=== PATIENT | male | born 1940 | race Caucasian/White ===

== ENCOUNTER 2020-01-28 21:39 | Inpatient (IN) | payer MEDICARE, BC ==
[~2020-01-28] VITALS: Ht 172.7 cm; Wt 60.8 kg
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
--- NOTE | 2020-01-28 21:41 | NUR ---
Dr Louie is at bedside for MSE.
[2020-01-28] MEDS ORDERED: LIDOCAINE 2% (UROJET) 10 ML JELLY MM ONE ×2 (21:45→22:11)
[2020-01-28] MEDS ORDERED: QUET25TA PO (21:58)
[2020-01-28] MEDS ORDERED: FISH OIL OMEGA PO (21:58)
[2020-01-28] MEDS ORDERED: TRAZ-257 PO (21:58)
[2020-01-28] MEDS ORDERED: UBIQUINOL PO (21:58)
[2020-01-28] MEDS ORDERED: MELA5TAB PO (21:58)
[2020-01-28] MEDS ORDERED: MV-M1TAB18 PO (21:58)
[2020-01-28 22:12] LABS: BASOPHILS # (AUTO) 0.1 K/uL (0.0-8.0); EOSINOPHILS # (AUTO) 0.1 K/uL (0.0-0.7); EOSINOPHILS % (AUTO) 2.1 % (0.0-7.0); HEMATOCRIT 38.2 % (36.7-47.1); HEMOGLOBIN 12.9 g/dL (12.5-16.3); LYMPHOCYTES # (AUTO) 1.5 K/uL (20.0-40.0); MEAN CORPUSCULAR HEMOGLOBIN 30.7 uug (23.8-33.4); MEAN CORPUSCULAR HGB CONC 34 g/dL (32.5-36.3); MEAN CORPUSCULAR VOLUME 90.7 fL (73.0-96.2); MONOCYTES # (AUTO) 0.6 K/uL (2.0-10.0); MONOCYTES % (AUTO) 9.6 % (0.0-11.0); NEUTROPHILS # (AUTO) 3.5 K/uL (1.8-8.9); NEUTROPHILS % (AUTO) 60.3 % (38.5-71.5); PLATELET COUNT (AUTO) 224 K/uL (152-348); RED BLOOD CELL COUNT(AUTO) 4.21 MIL/uL (4.06-5.63); WHITE BLOOD COUNT (AUTO) 5.7 K/uL (3.6-10.2)
[2020-01-28 22:16] LABS: CARBON DIOXIDE 31 mmol/L (21-32); CHLORIDE 106 mmol/L (98-107); CREATININE 0.9 mg/dL (0.6-1.3); GLUCOSE 108 mg/dL (74-106); POTASSIUM 3.6 mmol/L (3.5-5.1); UREA NITROGEN, BLOOD 18 mg/dL (7-18)
[2020-01-28 22:22] LABS: ALANINE AMINOTRANSFERASE 18 U/L (16-63); ALKALINE PHOSPHATASE 72 U/L (50-136); ASPARTATE AMINOTRANSFERASE 13 U/L (15-37); BILIRUBIN,DIRECT 0.1 mg/dL (0.0-0.2); BILIRUBIN,TOTAL 0.4 mg/dL (0.2-1.0); TOTAL PROTEIN, SERUM 6.6 g/dL (6.4-8.2)
[2020-01-28 22:24] LABS: ACETAMINOPHEN < 2.0 ug/mL (10-30); ETHANOL < 3 MG/DL (0-0)
[2020-01-28 22:30] LABS: THYROID STIMULATING HORMONE 1.931 mIU/mL (0.358-3.740)
[2020-01-28 22:34] LABS: *BILIRUBIN,URIN NEGATIVE (NEGATIVE); *BLOOD, URINE 1+ (NEGATIVE); *CLARITY,URINE CLEAR (CLEAR); *COLOR,URINE YELLOW (YELLOW); *KETONES,URINE NEGATIVE (NEGATIVE); *UROBILINOGEN,URINE 0.2 E.U./dl (NORMAL); LEUKOCYTE ESTERASE ,URINE NEGATIVE (NEGATIVE); NITRITE, URINE NEGATIVE (NEGATIVE); UGLUCOSE NEGATIVE (NEGATIVE)
[2020-01-28 22:40] LABS: *AMPHETAMINE, URINE NEGATIVE (NEGATIVE); *CANNABINOID, URINE NEGATIVE (NEGATIVE); *COCCAINE, URINE NEGATIVE (NEGATIVE); *OPIATE, URINE NEGATIVE (NEGATIVE); *PHENCYCLIDINE SCREEN,URINE NEGATIVE (NEGATIVE)
--- NOTE | 2020-01-28 22:41 | NUR ---
Pt has been medically cleared by Dr. Louie. Contacted Art HARDWARE TRAINER for Psych Eval.
--- NOTE | 2020-01-28 22:45 | NUR ---
Pt is now fully awake, alert x 1. However, he is confused and trying to get out of bed. Meal provided. Reoriented and redirected, but unable to keep him in bed. RN will continue to monitor for safety.
--- NOTE | 2020-01-28 22:57 | NUR ---
Pt is now in bed, resting comfortably.
[2020-01-28 23:04] LABS: WBC,URINE 0-3 /HPF (0-3)
--- NOTE | 2020-01-28 23:31 | NUR ---
Art TRADER FIXED INCOME at bedside for Psych Eval.
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
[2020-01-29] MEDS ORDERED: MAGNESIUM HYDROXIDE 30 ML LIQUID UDC PO PRN (01:30)
[2020-01-29] MEDS ORDERED: MAG HYDROX/AL HYDROX/SIMETH 30 ML LIQUID UDC PO PRN (01:30)
[2020-01-29] MEDS ORDERED: LORAZEPAM 2 MG/1 ML VIAL IM ONE (01:30)
[2020-01-29] MEDS ORDERED: HALOPERIDOL LACTATE 5 MG/1 ML VIAL IM ONE (01:30)
[2020-01-29] MEDS ORDERED: ACETAMINOPHEN 325 MG TABLET PO PRN (01:30)
[2020-01-29 07:30] VITALS: BP 140/77
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
--- NOTE | 2020-01-29 10:29 | NUR ---
SW Family Contact: This writher contacted pt's both daughters to discuss treatment and discharge plan. Daughter Sanjana ([phone]) is the DPOA for pt. Per pt's daughter Sanjana DPOA ([phone]) and daughter Araceli ([phone]) want pt back to [facility]. Per Araceli, she stated she is more involved in pt's care.
--- NOTE | 2020-01-29 10:29 | NUR ---
SW Initial Discharge Plan: Patient currently resides at [facility] [address] [place] [address]; ([phone]). Per pt's daughter Sanjana LANZA ([phone]) and daughter Araceli ([phone]) want pt back to [facility]. This verse writer contacted [facility] ([phone]) and spoke with Saloni who stated pt is welcomed back upon discharge. This verse writer will work with the MD, family, and treatment team to help coordinate proper discharge.
--- NOTE | 2020-01-29 10:31 | NUR ---
Firearms Report: Environmental Communications Specialist completed and submitted a DP[employer] firearms report for 5150 grave disability certification. A copy of report has been placed in patient chart.
--- NOTE | 2020-01-29 12:22 | NUR ---
called and spoke with patients daughter MYLA Chan , left message , waiting for call back regarding patient flu vaccine history and consent , will continue follow up
[2020-01-29] MEDS: LORAZEPAM 1 MG TABLET PO PRN (12:53)
[2020-01-29 16:00] VITALS: BP 163/92
[2020-01-29 20:00] VITALS: BP 149/86
[2020-01-29] MEDS: RIVASTIGMINE TARTRATE 1.5 MG CAPSULE PO SCH (21:00)
[2020-01-29] MEDS: HALOPERIDOL 1 MG TABLET PO SCH (22:20)
[2020-01-29] MEDS: DIVALPROEX 250 MG TABLET.DR PO SCH (22:20)
[2020-01-30] MEDS: TEMAZEPAM 7.5 MG CAPSULE PO PRN ×2 (02:01→23:28)
[2020-01-30 07:30] VITALS: BP 132/83
[2020-01-30] MEDS: DIVALPROEX 250 MG TABLET.DR PO SCH ×3 (08:21→17:26)
[2020-01-30] MEDS: RIVASTIGMINE TARTRATE 1.5 MG CAPSULE PO SCH ×2 (08:21→21:16)
[2020-01-30] MEDS: HALOPERIDOL 1 MG TABLET PO SCH ×3 (08:21→17:26)
[2020-01-30 08:24] LABS: BILIRUBIN,TOTAL 0.9 mg/dL (0.2-1.0); CREATININE 0.8 mg/dL (0.6-1.3); POTASSIUM 3.4 mmol/L (3.5-5.1); TOTAL PROTEIN, SERUM 7.3 g/dL (6.4-8.2)
[2020-01-30] MEDS: LORAZEPAM 1 MG TABLET PO PRN ×3 (10:42→17:26)
[2020-01-30] MEDS ORDERED: POTASSIUM CHLORIDE 20 MEQ TAB.PRT.SR PO ONE (11:30)
[2020-01-30 16:00] VITALS: BP 151/93
[2020-01-30 20:00] VITALS: BP 165/98
[2020-01-31] MEDS: DIVALPROEX 250 MG TABLET.DR PO SCH ×3 (08:38→18:17)
[2020-01-31] MEDS: RIVASTIGMINE TARTRATE 1.5 MG CAPSULE PO SCH ×2 (08:38→21:10)
[2020-01-31] MEDS: HALOPERIDOL 1 MG TABLET PO SCH ×3 (08:38→18:17)
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
[2020-01-31 10:31] VITALS: BP 124/76
[2020-01-31] MEDS: LORAZEPAM 1 MG TABLET PO PRN (13:23)
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
[2020-01-31 15:08] VITALS: BP 164/85
[2020-01-31 20:04] VITALS: BP 141/89
[2020-02-01] MEDS: TEMAZEPAM 7.5 MG CAPSULE PO PRN (01:54)
--- NOTE | 2020-02-01 07:26 | NUR ---
GPS - Pt not cooperative during routine care and ADL. Pt took routine meds and PRN Restoril. Pt did not sleep much at night. Pt was very combative with staffs, pt continue to stip naked. Will continue to monitor and keep resting.
[2020-02-01 07:30] VITALS: BP 167/87
[2020-02-01] MEDS: DIVALPROEX 250 MG TABLET.DR PO SCH ×3 (09:07→17:58)
[2020-02-01] MEDS: RIVASTIGMINE TARTRATE 1.5 MG CAPSULE PO SCH ×2 (09:07→20:20)
[2020-02-01] MEDS: HALOPERIDOL 1 MG TABLET PO SCH ×3 (09:07→17:58)
[2020-02-01 15:46] VITALS: BP 104/72
--- NOTE | 2020-02-01 18:28 | NUR ---
Gps/Agricultural Chemicals Inspector- Refusing to eat dinner, but able to drink his Ensure supplement Routine meds. was administered crushed with pudding .
[2020-02-01 20:00] VITALS: BP 122/81
[2020-02-02 07:30] VITALS: BP 125/80
[2020-02-02] MEDS: HALOPERIDOL 1 MG TABLET PO SCH ×3 (08:55→17:42)
[2020-02-02] MEDS: RIVASTIGMINE TARTRATE 1.5 MG CAPSULE PO SCH ×2 (08:55→20:58)
[2020-02-02] MEDS: DIVALPROEX 250 MG TABLET.DR PO SCH ×3 (08:55→17:00)
--- NOTE | 2020-02-02 15:40 | NUR ---
Gps/Chief Operator Reformer- Patient noted increased agitation, angry, after he talked to family/ on the phone., Refusing to give up the phone , trying to be aggressive towards the staff, refusing to give up the phone.
[2020-02-02 16:00] VITALS: BP 133/88
[2020-02-02 20:00] VITALS: BP 147/90
[2020-02-02] MEDS: LORAZEPAM 1 MG TABLET PO PRN (21:00)
[2020-02-02] MEDS: TEMAZEPAM 7.5 MG CAPSULE PO PRN (23:49)
--- NOTE | 2020-02-03 06:49 | NUR ---
GPS - No abnormal noted and no excessive issue. Pt has been restless, naked and ripping everything off him. Pt physically with some aggressive when staffs providing ADL. Ativan was given at 2100 and will continue to monitor pt. By 2348 Pt was still awake and restless, PRN Restoril given with noted effect. Pt slept about 5-6hrs but stay calm in bed when awake.
[2020-02-03 07:30] VITALS: BP_SYST 125; BP_SYST 152; BP_DIAS 75; BP_DIAS 80
[2020-02-03] MEDS: DIVALPROEX 250 MG TABLET.DR PO SCH ×3 (08:38→17:00)
[2020-02-03] MEDS: HALOPERIDOL 1 MG TABLET PO SCH ×3 (08:38→17:37)
[2020-02-03] MEDS: RIVASTIGMINE TARTRATE 1.5 MG CAPSULE PO SCH ×2 (08:38→20:25)
--- NOTE | 2020-02-03 09:50 | NUR ---
Family Contact: Pts daughter, Araceli ([phone]), called the SW and stated that she wanted to discuss the pts care. SW spent 25 minutes with the pts daughter to explain what it means for the pt to be on a hold, what the pts behaviors are, what the pts medications are, what the MDs involvement with the family and pt looks like, and lastly what the pts discharge recommendation is. OSWALDO stated that she messaged the MD to speak to the family later tonight and then informed her that based off of the pts behaviors, SW felt that a SNF would be more appropriate and then provided her with some options. SW stated that she will follow up once the pts daughter can speak with the pts DPOA.
[2020-02-03 15:09] VITALS: BP 142/83
[2020-02-03 21:07] VITALS: BP 132/66
--- NOTE | 2020-02-04 06:52 | NUR ---
Received Pt in his room in bed, naked from the waist down, and masturbating. Pt was redirected and educated on appropriate behavior. Pt did not respond to most assessment questions, gave minimal disclosure, and was uncooperative with staff direction. Pt is confused, disorganized, and disoriented, has poor recall, and requires frequent redirection. Pt becomes unpredictable, combative, and assaultive toward staff when care is rendered. Presents with poor impulse control, appears to be thought blocked and internally preoccupied when not being aggressive. Pt is isolative, withdrawn, and seclusive to his room, refused all prns offerred to him. VS stable, no c/o pain. Bed bath given with multiple staff this morning.
[2020-02-04 07:30] VITALS: BP 123/75
[2020-02-04] MEDS: DIVALPROEX 250 MG TABLET.DR PO SCH ×3 (08:03→16:30)
[2020-02-04] MEDS: HALOPERIDOL 1 MG TABLET PO SCH ×3 (08:03→16:30)
[2020-02-04] MEDS: RIVASTIGMINE TARTRATE 1.5 MG CAPSULE PO SCH ×2 (08:03→20:46)
--- NOTE | 2020-02-04 10:56 | NUR ---
SNF Referral: OSWALDO faxed a referral to [facility] with attention to Ravi to the fax number: [phone].
--- NOTE | 2020-02-04 13:30 | NUR ---
Family Contact: SW called the pts daughter, Araceli ([phone]), after the Charge Nurse stated that she wanted a call from the SW to discuss discharge planning. Araceli stated that the Charge Nurse informed her that the pt has been doing better and was walking today. SW informed the pts daughter that the pt did indeed walk with physical therapy today but is not doing better. SW stated that the pt is in his room, taking his clothes off, masturbating, not eating, not taking medications, malodorous, and aggressive. SW read notes from the pts chart to the daughter to verify the pts behaviors. Pts daughter stated that she was upset with the "constant misinformation and lack of care from this facility." Pts daughter stated, "I do not trust this facility and want my father to be discharged somewhere else as soon as possible." She stated that she had just informed her family members that he was doing better and that they were planning on sending him back to the Assisted Living that he came from. OSWALDO stated that based off of the current notes and the behavior described that the recommendation for placement would be SNF. OSWALDO stated that she will refer the pt to fdc facilities and will let her know if there is an accepting one. OSWALDO stated that she will call her with updates and information on the pt as she feels that there is a lack of family involvement.
--- NOTE | 2020-02-04 14:10 | NUR ---
Family Contact: SW called the pts daughter, Araceli ([phone]), after speaking to the pts nurse for the day. SW stated that the pts nurse stated, "the pt is horrible." Pts nurse stated that she has been having a difficult time giving the pt his medications and the pt was refusing to eat so they had to give the pt Ensure. SW informed the pts daughter that the pt is not stable and needs more time and that the SW will refer the pt to SNF. Pts daughter agreed with the placement referrals.
--- NOTE | 2020-02-04 14:46 | NUR ---
SNF Referral: OSWALDO faxed a referral to [facility] with attn to Sherita to the fax number: [phone].
--- NOTE | 2020-02-04 15:13 | NUR ---
SNF Contact: Sherita ([phone]) from [facility] contacted the SW and stated that the pt was accepted to their facility.
[2020-02-04 16:00] VITALS: BP 121/85
[2020-02-04 20:10] VITALS: BP 121/85
[2020-02-05 07:30] VITALS: BP 132/81
[2020-02-05] MEDS: RIVASTIGMINE TARTRATE 1.5 MG CAPSULE PO SCH ×2 (08:36→21:13)
[2020-02-05] MEDS: HALOPERIDOL 1 MG TABLET PO SCH ×3 (08:36→17:00)
[2020-02-05] MEDS: DIVALPROEX 250 MG TABLET.DR PO SCH ×3 (08:36→17:00)
--- NOTE | 2020-02-05 10:05 | NUR ---
Family Contact: Pts daughter, Araceli ([phone]), called the SW and stated that she spoke to Charge Nurse about the misinformation from the previous day and the Charge Nurse stated he does not know about the information that the SW presented the previous day. SW informed her that she spoke to him after he got off the phone and showed him the notes that he was unaware of. Pts daughter stated that she wanted an update on how the pt was doing today and SW stated that she saw him in his room but was unable to speak to him. Pts daughter asked the SW to refer the pt to a facility and then rescinded the request when she realized that the facility is in [place]. SW stated that the pt is in no condition to be flying at this time and that local placement is recommended. SW informed her that the pt was accepted to [facility] and then informed her that she would have the Admissions Department contact her.
--- NOTE | 2020-02-05 10:30 | NUR ---
MYLA Contact: Pt's daughter Sanjana LANZA ([phone]) called the SW and stated that she wanted the SW to send paperwork to a facility in [place] even though she agreed that the pt needs a local placement first. SW expressed that sending the notes before the pt is stable may jeopardize the pts admission to the facility in [place]. Pts daughter stated that she will talk to the facility and contact the SW at a later time if it is still needed.
--- NOTE | 2020-02-05 12:57 | NUR ---
Family Contact: Pts daughter, Araceli ([phone]), called the SW and stated that she spoke to [facility] and does not feel like the pt would get the appropriate care that he needs at that facility. She expressed that if the pt improves that they would want the pt back at his Assisted Living and SW stated that she can have a conversation with the facility to make sure that they will be able to care for the pt. SW also provided the pts daughter with multiple SNF options in case she will find one that is a better fit. SW stated that she will call the daughter the next day to address the discharge plan.
--- NOTE | 2020-02-05 15:56 | NUR ---
Family Contact: OSWALDO called the pts daughter, Araceli ([phone]), and left a voicemail stating that OSWALDO would like to provide her with an update.
[2020-02-05 16:00] VITALS: BP 128/88
[2020-02-05 20:22] VITALS: BP 150/81
[2020-02-06 07:30] VITALS: BP 139/91
--- NOTE | 2020-02-06 08:41 | NUR ---
Family Contact: OSWALDO called the pts daughter, Araceli ([phone]), and informed her that the pts medications were adjusted the previous night and in fact were decreased because the MD note states that the pt was too sedated during the day. SW then went into the notes to review how the pts meal intake is like and saw that the pt had 75% of breakfast, 25% of lunch and 0% of dinner. Pts daughter stated that she wanted a list of SNF recommendations so that the family can do their research and then figure out if they want him in a SNF or if they want the pt in an Assisted Living. Pts daughter stated that this decision will also depend on whether or not the pt improves with this change in medication. SW stated that she will provide her with an update later in the day.
[2020-02-06] MEDS: DIVALPROEX 250 MG TABLET.DR PO SCH ×3 (09:07→16:43)
[2020-02-06] MEDS: RIVASTIGMINE TARTRATE 1.5 MG CAPSULE PO SCH ×2 (09:07→20:34)
[2020-02-06] MEDS: HALOPERIDOL 0.5 MG TABLET PO SCH ×3 (09:07→16:43)
[2020-02-06] MEDS: ENSURE ENLIVE (VAN) 240 ML LIQUID PO SCH (09:08)
--- NOTE | 2020-02-06 15:35 | NUR ---
Family Contact: Pts daughter, Araceli ([phone]), called the SW and informed the SW that she wanted the pt to be referred to [facility], [facility], [facility], [facility], and [facility] in that order after the SW informed him about the pts behaviors.
--- NOTE | 2020-02-06 15:54 | NUR ---
SNF Referral: OSWALDO faxed a referral to [facility] with attention to Silva to the fax number: [phone].
[2020-02-06 16:00] VITALS: BP 126/78
[2020-02-06 20:00] VITALS: BP 138/87
--- NOTE | 2020-02-07 03:30 | NUR ---
While changing patient's diaper, he became combative, kicking and grabbing staff with his hands. patient noted with impaired insight and judgment. Unable to have a meaningful conversation with this senior copywriter. We will continue to monitor.
[2020-02-07 07:30] VITALS: BP 129/74
[2020-02-07] MEDS ORDERED: Medication Not On Formulary EA (Mv-Mn/Iron/FA/Herbal Cmplx#190 (Vitamin D3 Complete Capl PO SCH (09:00)
[2020-02-07] MEDS ORDERED: [UNRECOGNIZED DRUG - OTHER] PO SCH (09:00)
[2020-02-07] MEDS: OMEGA-3 FATTY ACIDS/FISH OIL CAPSULE PO SCH (09:00)
[2020-02-07] MEDS: ENSURE ENLIVE (VAN) 240 ML LIQUID PO SCH (09:00)
[2020-02-07] MEDS: CHOLECALCIFEROL 1,000 UNIT TABLET PO SCH (09:31)
[2020-02-07] MEDS: RIVASTIGMINE TARTRATE 1.5 MG CAPSULE PO SCH ×2 (09:31→20:41)
[2020-02-07] MEDS: DIVALPROEX SPRINKLE 125 MG CAP.SPRINK PO SCH ×3 (09:32→17:24)
[2020-02-07] MEDS: HALOPERIDOL 0.5 MG TABLET PO SCH ×3 (09:32→17:24)
[2020-02-07] MEDS: CALCIUM CARBONATE 500 MG TABLET PO SCH (09:57)
--- NOTE | 2020-02-07 10:51 | NUR ---
SNF Contact: Silva ([phone]) from [facility] contacted the SW and stated that the pt was accepted to their facility at the time of discharge with a negative COVID test.
--- NOTE | 2020-02-07 12:20 | NUR ---
Family Contact: SW called the pts daughter, Araceli ([phone]), and informed her that [facility] has accepted the pt. Pts daughter stated that she wanted referrals sent to [facility] and [facility]. SW stated that she will send the referrals. Pts daughter asked for an update on the pts behaviors and SW stated that the pt is combative with the nurses when they attempt to offer care and that he ate 50% of his breakfast. SW stated that she will keep her updated.
--- NOTE | 2020-02-07 13:05 | NUR ---
SNF Referral: OSWALDO faxed a referral to the following two facilities: Elsy Silva attn to Keturah to the fax number: [phone] [facility] with attn to Marek: [phone]
--- NOTE | 2020-02-07 14:06 | NUR ---
SNF Contact: Gladis ([phone]) from [facility] called the SW and stated that the pt was accepted to their facility.
[2020-02-07 16:00] VITALS: BP 128/83
[2020-02-07 20:33] VITALS: BP 126/72
[2020-02-07] MEDS: TEMAZEPAM 7.5 MG CAPSULE PO PRN (22:03)
--- NOTE | 2020-02-08 07:20 | NUR ---
GPS/Rn - Patient was cooperative with medications but very aggressive and combative during ADL care, pt was assisted with up to three staffs to clean him up. Pt kicks, try to bits or stick staffs with his fist and more. PRN sleep aid was given due to unable to fall asleep with none pharmacological intervention. Monitor with noted effect, pt later slept up 7.30mins.
[2020-02-08 07:30] VITALS: BP 151/72
[2020-02-08] MEDS: HALOPERIDOL 0.5 MG TABLET PO SCH ×4 (08:57→16:00)
[2020-02-08] MEDS: OMEGA-3 FATTY ACIDS/FISH OIL CAPSULE PO SCH ×2 (08:57→09:00)
[2020-02-08] MEDS: CHOLECALCIFEROL 1,000 UNIT TABLET PO SCH ×2 (08:57→09:00)
[2020-02-08] MEDS: DIVALPROEX SPRINKLE 125 MG CAP.SPRINK PO SCH ×4 (08:57→16:00)
[2020-02-08] MEDS: RIVASTIGMINE TARTRATE 1.5 MG CAPSULE PO SCH ×3 (08:57→20:03)
[2020-02-08] MEDS: ENSURE ENLIVE (VAN) 240 ML LIQUID PO SCH (08:57)
[2020-02-08] MEDS: CALCIUM CARBONATE 500 MG TABLET PO SCH (09:00)
[2020-02-08 16:36] VITALS: BP 125/85
--- NOTE | 2020-02-08 18:02 | NUR ---
Received Patient AOx1, asleep on his bed, patient was reported of having aggresive behavior, and was total assist, today patient was assisted with his ADL, had him walking on FWW with assist, and able to eat his lunch and dinner upto 25%, and drink i pack of ensure, patient seen crying at times and responding to internal stimuli, has poor insight and poor memory, patient unable to have sensical conversation, patient took shower today assisted by WELLNESS NURSE, patient was cooperative and calm in shower room, no PRN was given although patient missed his morning medication due to sleeping in the morning, assisted with his ADLs, needs met, monitored Q15 for safety , no distress at this time
[2020-02-08 20:06] VITALS: BP 128/89
[2020-02-08] MEDS: LORAZEPAM 1 MG TABLET PO PRN (20:10)
[2020-02-09 07:53] VITALS: BP 129/81
[2020-02-09] MEDS: DIVALPROEX SPRINKLE 125 MG CAP.SPRINK PO SCH ×3 (08:08→16:27)
[2020-02-09] MEDS: HALOPERIDOL 0.5 MG TABLET PO SCH ×3 (08:08→16:27)
[2020-02-09] MEDS: CALCIUM CARBONATE 500 MG TABLET PO SCH (08:08)
[2020-02-09] MEDS: CHOLECALCIFEROL 1,000 UNIT TABLET PO SCH (08:08)
[2020-02-09] MEDS: RIVASTIGMINE TARTRATE 1.5 MG CAPSULE PO SCH ×3 (08:08→21:52)
[2020-02-09] MEDS: OMEGA-3 FATTY ACIDS/FISH OIL CAPSULE PO SCH (08:08)
[2020-02-09] MEDS: ENSURE ENLIVE (VAN) 240 ML LIQUID PO SCH (09:00)
[2020-02-09 16:29] VITALS: BP 142/97
[2020-02-09 20:23] VITALS: BP 137/82
--- NOTE | 2020-02-10 04:04 | NUR ---
Patient is in bed lying in prone position. He had moved his blanket and sheet to the side of his body. [place]ok Machine Operator replaced items for patient. He moaned but did not attempt to remove the blanket and sheet. Bang Melara RN
--- NOTE | 2020-02-10 07:02 | NUR ---
HANDOFF WITH SANTIAGO DUTTA RN. CESAR SUNG RN Addendum: 02/10/20 at 0710 by REGISTRY [facility]IENT [id number] RN RAMONITA Quach
[2020-02-10 07:30] VITALS: BP 115/75
[2020-02-10] MEDS: OMEGA-3 FATTY ACIDS/FISH OIL CAPSULE PO SCH (09:00)
[2020-02-10] MEDS: ENSURE ENLIVE (VAN) 240 ML LIQUID PO SCH (09:00)
[2020-02-10] MEDS: DIVALPROEX SPRINKLE 125 MG CAP.SPRINK PO SCH ×3 (09:42→16:47)
[2020-02-10] MEDS: HALOPERIDOL 0.5 MG TABLET PO SCH ×3 (09:42→16:47)
[2020-02-10] MEDS: CHOLECALCIFEROL 1,000 UNIT TABLET PO SCH (09:42)
[2020-02-10] MEDS: CALCIUM CARBONATE 500 MG TABLET PO SCH (09:44)
[2020-02-10] MEDS: RIVASTIGMINE TARTRATE 1.5 MG CAPSULE PO SCH ×2 (09:44→20:00)
--- NOTE | 2020-02-10 13:16 | NUR ---
SW Family Contact: This securities underwriter contacted pt's daughter Araceli multiple times ([phone]) to discuss discharge plan and which facility she has chosen. She has been going back and forth with her decision and stated she will update this securities underwriter as soon as possible.
--- NOTE | 2020-02-10 13:19 | NUR ---
W Family Contact: This machine sign writer contacted pt's daughter Araceli ([phone]) and she agreed with [facility].
[2020-02-10 16:00] VITALS: BP 110/88
[2020-02-10] MEDS: LORAZEPAM 1 MG TABLET PO PRN (19:59)
[2020-02-10 20:26] VITALS: BP 136/98
[2020-02-11 07:30] VITALS: BP_SYST 131; BP_SYST 134; BP_DIAS 54; BP_DIAS 59
--- NOTE | 2020-02-11 08:09 | NUR ---
SW Discharge Note: Patient will be discharged to [facility] [address] [place] [address]; ([phone]) via ambulance at 12PM. Upholstery Covers Inspector spoke with Silva galvan at [facility] ([phone]) who stated patient will be accepted at facility today. Patients daughter Araceli ([phone]) and DPJAYDA Judge ([phone]) is aware and agreeable. Patient is alert and oriented x1-2 and is not able to plan for self-care at this time but is willing to accept care provided for his at the facility. Patient denies suicidal or homicidal ideation. Patient will follow-up with (Psychiatrist) Dr. Ballard and (Biological Chemist) Dr. Rausch at [facility]. Patient presented with euthymic mood and congruent affect.
[2020-02-11] MEDS: DIVALPROEX SPRINKLE 125 MG CAP.SPRINK PO SCH ×2 (08:28→12:24)
[2020-02-11] MEDS: OMEGA-3 FATTY ACIDS/FISH OIL CAPSULE PO SCH (08:28)
[2020-02-11] MEDS: CALCIUM CARBONATE 500 MG TABLET PO SCH (08:28)
[2020-02-11] MEDS: RIVASTIGMINE TARTRATE 1.5 MG CAPSULE PO SCH (08:28)
[2020-02-11] MEDS: HALOPERIDOL 0.5 MG TABLET PO SCH ×2 (08:28→12:24)
[2020-02-11] MEDS: CHOLECALCIFEROL 1,000 UNIT TABLET PO SCH (08:29)
[2020-02-11] MEDS: ENSURE ENLIVE (VAN) 240 ML LIQUID PO SCH (08:31)
--- NOTE | 2020-02-11 13:35 | NUR ---
Patient discharged to [facility] via ambulance,all personal belonging return to pt.reportgiven to anthony RN, Patient denies suicidal or homicidal ideation. Patient will follow-up with (Psychiatrist) Dr. Ballard and (Measurement And Sensing Technician) Dr. Colunga.
== END 2020-02-11 13:30 | DRG 885 ==
LOC: ER 21:42 → GPS 23:55
PROVIDERS: ADMIT Psychiatry & Neurology Psychiatry; ATTEND Registered Nurse
DX: F39 Unspecified mood [affective] disorder (principal); F02.81 Dementia in other diseases classified elsewhere, unspecified severity, with behavioral disturbance; F23 Brief psychotic disorder; F29 Unspecified psychosis not due to a substance or known physiological condition; G30.9 Alzheimer's disease, unspecified; E78.5 Hyperlipidemia, unspecified; M81.0 Age-related osteoporosis without current pathological fracture; R26.81 Unsteadiness on feet; R00.1 Bradycardia, unspecified; Z73.6 Limitation of activities due to disability
CPT/HCPCS: 36415; 51702; 70450; 80164; 84443; 85025; 93005; A4663; G0480; J1630; J2060; J3490; U0003